=== PATIENT | female | born 1985 | race Asian ===

== ENCOUNTER 2017-12-05 16:51 | Emergency (ER) | payer MEDICAID ==
[~2017-12-05] VITALS: Ht 152.4 cm; Wt 65.0 kg
[~2017-12-05 16:51] MED LIST: VALA100027 PO
[2017-12-05] MEDS ORDERED: normal saline 1000ML IV soln IVB ONE (17:05)
[2017-12-05 17:21] LABS: BASOPHILS % (AUTO) 0.2 % (0-1); EOSINOPHILS # (AUTO) 0.1 X10'3 (0-0.9); EOSINOPHILS % (AUTO) 0.4 % (0-6); HEMATOCRIT 38.2 % (35.0-45.0); HEMOGLOBIN 12.7 g/dl (12.0-16.0); LYMPHOCYTES # (AUTO) 1.3 X10'3 (1.1-4.8); LYMPHOCYTES % (AUTO) 10.2 % (21-51); MEAN CORPUSCULAR HEMOGLOBIN 22.4 PG (27.0-31.0); MEAN CORPUSCULAR HGB CONC 33.2 % (33.0-36.5); MEAN CORPUSCULAR VOLUME 67.3 FL (78-98); MEAN PLATELET VOLUME 9.8 FL (7.4-10.4); MONOCYTES # (AUTO) 0.4 X10'3 (0-0.9); NEUTROPHILS # (AUTO) 11.3 X10'3 (1.8-7.7); NEUTROPHILS % (AUTO) 86.2 % (42-75); PLATELET COUNT 235 X10'3 (140-440); RED BLOOD COUNT 5.67 X10'6 (4.20-5.60); RED CELL DISTRIBUTION WIDTH 14.1 % (11.5-14.5); WHITE BLOOD COUNT 13.1 X10'3 (4.5-11.0)
[2017-12-05 17:35] LABS: ALANINE AMINOTRANSFERASE 28 U/L (12-78); ALBUMIN 3.6 G/DL (3.4-5.0); ALBUMIN/GLOBULIN RATIO 0.8 (1.1-1.5); ALKALINE PHOSPHATASE 102 IU/L (46-116); ANION GAP 13 (8-16); ASPARTATE AMINO TRANSFERASE 16 U/L (10-37); BILIRUBIN,TOTAL 0.8 MG/DL (0.1-1.0); BLOOD UREA NITROGEN 9 MG/DL (7-18); CALCIUM 9.2 MG/DL (8.5-10.1); CHLORIDE 103 MMOL/L (99-107); GLUCOSE 121 MG/DL (70-104); POTASSIUM 3.7 MMOL/L (3.5-5.1); SODIUM 140 MMOL/L (135-145); TOTAL CARBON DIOXIDE 24.4 MMOL/L (24-32); TOTAL PROTEIN 8.4 G/DL (6.4-8.2); eGFR > 90 ML/MIN
[2017-12-05 18:20] LABS: CLARITY,URINE CLEAR (Clear); COLOR,URINE YELLOW (Yellow); GLUCOSE, URINE NEGATIVE (Neg); KETONES,URINE 40 mg/dl (Neg); LEUKOCYTE ESTERASE ,URINE NEGATIVE (Neg); NITRITES, URINE NEGATIVE (Neg); OCCULT BLOOD,URINE MODERATE (Neg); PROTEIN,URINE NEGATIVE (Neg); URINE HCG NEGATIVE (NEG)
[2017-12-05 18:23] LABS: UA COLLECTION TYPE CLN CATCH MIDSTREAM
[2017-12-05 18:31] LABS: BACTERIA,URINE NONE SEEN /HPF (Neg); MUCUS STRANDS MODERATE /LPF (Neg); SQUAMOUS EPITHELIAL CELL,UR FEW /LPF (FEW); WBC,URINE 0-4 /HPF (0-4)
[2017-12-05] MEDS ORDERED: PENI500T2 PO (19:01)
[2017-12-05] MEDS ORDERED: IBUP-1984 PO (19:01)
[2017-12-05 19:50] VITALS: BP 124/63
== END 2017-12-05 19:53 | disposition home or self-care (01) ==
LOC: ER 16:51
DX: J02.0 Streptococcal pharyngitis (principal)
CPT/HCPCS: 36415; 80053; 81001; 81025; 85025; 87502; 87503; 87880; 96360; 99284; J7030

== ENCOUNTER 2018-11-08 12:09 | Emergency (ER) | payer MEDICAID ==
[~2018-11-08] VITALS: Ht 152.4 cm; Wt 66.5 kg
[2018-11-08 13:40] LABS: CLARITY,URINE CLEAR (Clear); COLOR,URINE YELLOW (Yellow); GLUCOSE, URINE NEGATIVE (Neg); KETONES,URINE NEGATIVE (Neg); LEUKOCYTE ESTERASE ,URINE NEGATIVE (Neg); NITRITES, URINE NEGATIVE (Neg); OCCULT BLOOD,URINE SMALL (Neg); PH,URINE 6.5 (4.8-8.0); PROTEIN,URINE NEGATIVE (Neg)
[2018-11-08 13:41] LABS: URINE HCG NEGATIVE (NEG)
[2018-11-08 13:49] LABS: BACTERIA,URINE NONE SEEN /HPF (Neg); MUCUS STRANDS FEW /LPF (Neg); SQUAMOUS EPITHELIAL CELL,UR MODERATE /LPF (FEW); UA COLLECTION TYPE CLN CATCH MIDSTREAM; WBC,URINE 0-4 /HPF (0-4)
[2018-11-08 13:49] LABS: BASOPHILS % (AUTO) 0.1 % (0-1); EOSINOPHILS # (AUTO) 0.1 X10'3 (0-0.9); EOSINOPHILS % (AUTO) 0.6 % (0-6); HEMATOCRIT 40.6 % (35.0-45.0); HEMOGLOBIN 12.6 g/dl (12.0-16.0); LYMPHOCYTES # (AUTO) 1.8 X10'3 (1.1-4.8); MEAN CORPUSCULAR HEMOGLOBIN 21.1 PG (27.0-31.0); MEAN CORPUSCULAR HGB CONC 30.9 % (33.0-36.5); MEAN CORPUSCULAR VOLUME 68.3 FL (78-98); MEAN PLATELET VOLUME 10.5 FL (7.4-10.4); MONOCYTES # (AUTO) 0.8 X10'3 (0-0.9); MONOCYTES % (AUTO) 6.9 % (2-12); NEUTROPHILS # (AUTO) 8.4 X10'3 (1.8-7.7); NEUTROPHILS % (AUTO) 76.4 % (42-75); PLATELET COUNT 231 X10'3 (140-440); RED BLOOD COUNT 5.94 X10'6 (4.20-5.60); RED CELL DISTRIBUTION WIDTH 13.1 % (11.5-14.5); WHITE BLOOD COUNT 11.1 X10'3 (4.5-11.0)
[2018-11-08 14:10] LABS: PROTHROMBIN TIME 10.2 SECONDS (9.0-12.0)
[2018-11-08 14:12] LABS: ALANINE AMINOTRANSFERASE 23 U/L (12-78); ALBUMIN 3.3 G/DL (3.4-5.0); ALBUMIN/GLOBULIN RATIO 0.7 (1.1-1.5); ALKALINE PHOSPHATASE 104 IU/L (46-116); ANION GAP 11 (8-16); ASPARTATE AMINO TRANSFERASE 22 U/L (10-37); BLOOD UREA NITROGEN 10 MG/DL (7-18); BUN/CREATININE RATIO 25.6 (6.6-38.0); CALCIUM 8.9 MG/DL (8.5-10.1); CHLORIDE 101 MMOL/L (99-107); CREATININE 0.39 MG/DL (0.40-0.90); GLUCOSE 89 MG/DL (70-104); LIPASE 109 U/L (73-393); POTASSIUM 3.8 MMOL/L (3.5-5.1); SODIUM 135 MMOL/L (135-145); TOTAL CARBON DIOXIDE 22.6 MMOL/L (24-32); TOTAL PROTEIN 8.2 G/DL (6.4-8.2); eGFR > 90 ML/MIN
[2018-11-08] MEDS ORDERED: normal saline 1000ML IV soln IV ONE (14:25)
[2018-11-08] MEDS ORDERED: ondansetron/PF 4mg/2ml inj IV ONE (14:25)
[2018-11-08] MEDS ORDERED: ONDA4TAB6 PO (16:19)
[2018-11-08 16:44] VITALS: BP 117/73
== END 2018-11-08 16:47 | disposition home or self-care (01) ==
LOC: ER 12:10
DX: B34.9 Viral infection, unspecified (principal); E86.0 Dehydration; R00.0 Tachycardia, unspecified; Z79.899 Other long term (current) drug therapy
CPT/HCPCS: 36415; 71045; 80053; 81001; 81025; 83605; 83690; 85025; 85610; 87040; 87502; 87503; 96361; 96374; 99284; J2405; J7030

== ENCOUNTER 2018-12-03 14:30 | Emergency (ER) | payer MEDICAID ==
[~2018-12-03] VITALS: Ht 152.4 cm; Wt 65.0 kg
[~2018-12-03 14:30] MED LIST changes: +ONDA4TAB6 PO
[2018-12-03 14:34] VITALS: BP 143/87
== END 2018-12-03 15:21 | disposition home or self-care (01) ==
LOC: ER 14:31
DX: S06.0X0A Concussion without loss of consciousness, initial encounter (principal); S00.31XA Abrasion of nose, initial encounter; Z79.899 Other long term (current) drug therapy; Y04.2XXA Assault by strike against or bumped into by another person, initial encounter; Y93.89 Activity, other specified; Y92.89 Other specified places as the place of occurrence of the external cause; Y99.8 Other external cause status
CPT/HCPCS: 99281

== ENCOUNTER 2020-07-16 11:43 | Emergency (ER) | payer SELFPAY ==
[~2020-07-16] VITALS: Ht 152.4 cm; Wt 58.2 kg
[~2020-07-16 11:43] MED LIST changes: -VALA100027 PO; +VALA100031 PO
[2020-07-16 11:52] VITALS: BP 151/93
[2020-07-16] MEDS ORDERED: acetaminophen 325mg tablet PO ONE (14:45)
[2020-07-16] MEDS ORDERED: HYDR-4383 PO (15:34)
[2020-07-16] MEDS ORDERED: CEPH250T PO (15:39)
== END 2020-07-16 16:13 | disposition home or self-care (01) ==
LOC: ER 11:44
DX: S00.81XA Abrasion of other part of head, initial encounter (principal); R11.10 Vomiting, unspecified; R51 Headache; Z72.89 Other problems related to lifestyle; Z79.2 Long term (current) use of antibiotics; Z79.899 Other long term (current) drug therapy; X58.XXXA Exposure to other specified factors, initial encounter; Y93.89 Activity, other specified; Y92.89 Other specified places as the place of occurrence of the external cause; Y99.8 Other external cause status; Y09 Assault by unspecified means
CPT/HCPCS: 70450; 70486; 72125; 99285

== ENCOUNTER 2025-06-20 16:14 | Inpatient (IN) | payer MEDICAID ==
[~2025-06-20] VITALS: Ht 152.4 cm; Wt 54.0 kg
[~2025-06-20 16:14] MED LIST changes: +HYDR-4383 PO
[2025-06-20] MEDS: normal saline 1000ML IV soln IVB ONE (17:09)
[2025-06-20 17:14] LABS: MEAN PLATELET VOLUME 9.0 FL (7.4-10.4); RED CELL DISTRIBUTION WIDTH 14.4 % (11.5-14.5)
[2025-06-20 17:25] LABS: CREATININE 0.52 MG/DL (0.40-0.90); TOTAL CARBON DIOXIDE 24.8 MMOL/L (24-32); eCRCL 103 ML/MIN; eGFR > 90 ML/MIN
[2025-06-20 17:54] LABS: LEUKOCYTE ESTERASE ,URINE NEGATIVE (Neg); NITRITES, URINE NEGATIVE (Neg); OCCULT BLOOD,URINE TRACE-INTACT (Neg)
[2025-06-20 17:58] LABS: UA COLLECTION TYPE VOIDED; URINE HCG NEGATIVE (NEG)
[2025-06-20 17:59] LABS: SQUAMOUS EPITHELIAL CELL,UR FEW /LPF (FEW)
[2025-06-20 18:00] LABS: MUCUS STRANDS FEW /LPF (Neg)
--- NOTE | 2025-06-20 18:38 | Physician Documentation ---
History of Present Illness ~ Chief Complaint: Abdominal Pain Stated Complaint: ABD PAIN AND NOT KEEPING ANYTHING DOWN Time Seen by MD: 18:24 OK to notify your PCP?: Yes [facility] Source: patient Mode of Arrival: POV Exam Limitations: no limitations HPI Chief Complaint: Abdominal pain Caveat: None Independent Historians: None History of Present Illness: Patient is a 40-year-old woman who started to feel ill this morning at approximately 11:00 a.m. with diffuse abdominal pain. Patient describes the pain as constant, severe, 10/10, waxes and wanes. She has had associated nausea and vomiting. Patient states that she started to have diarrhea multiple times throughout the night but then today is only had diarrhea once. Patient denies any fever. Patient complains of feeling bloated. Patient also complains of heartburn and complains of lower central substernal chest pain. Patient also complains of shortness a breath and shortness a breath with exertion. Review of systems: All systems were reviewed and are negative except for what is indicated in the history of present illness. Past Medical History: None Past Surgical History: Cholecystectomy, fibroidectomy Social History: No tobacco use, occasional alcohol use, no drug use Medications: Reviewed as documented Nursing Notes Allergies: Reviewed as documented in Nursing Notes Medication Reconciliation Allergies: Coded Allergies: No Known Allergies (Unverified , 03/07/13) Scheduled Hydrocodone/Acetaminophen ([place] 5-325 Tablet), 1 TAB PO Q12H PRN Ondansetron Hcl (Zofran), 1 TAB PO Q6H Valacyclovir HCl (Valacyclovir), 1 TABLET PO TID Past Medical History Past Medical History: No Pertinent History Past Surgical History: no surgical history Alcohol Use: Occasionally Drug Use: none Lives with: S/O Lives In: Home Review of Systems All Other Systems at this time: Reviewed and Negative ROS Patient denies any other acute symptoms other than above. All other systems are negative Physical Exam Vital Signs: RN Vital Signs have been reviewed: Yes, Temperature: 97.7, Source: Oral, Heart Rate: 119, Respiratory Rate: 16, BP: 186/72, Pulse Oximetry: 97, Weight: 54.000 Pulse Oximetry Reflects: adequate oxygenation Physical Exam General Appearance: MODERATE DISTRESS HEENT: Normal OP, moist oral mucosa, PERRL, EOMI Neck: supple, normal ROM, trachea midline Pulmonary: No respiratory distress, CTA, BS equal Cardiac: TACHYCARDIC, REGULAR RHYTHM, no murmur, rub or gallop, GI: DISTENDED, TYMPANITIC TO PERCUSSION, HYPERACTIVE BOWEL SOUNDS, SOFT, DIFFUSE TENDERNESS, NO REBOUND, NO GUARDING Extremities: normal ROM, no swelling, non-tender, CALVES ARE SOFT AND NONTENDER Skin: intact, dry, warm, no rashes Neuro: AAOx3, speech is clear, no focal motor weakness Psych: normal affect, good eye contact, no apparent hallucination, normal speech Progress Results/Orders Results/Orders Orders - ABDIRIZKA HELMS MD Culture Blood (06/20/25 18:30) Ct Abdomen Pelvis (06/20/25 18:30) Chest,Single View (06/20/25 18:44) Completed Orders - ABDIRIZAK HELMS MD Normal Saline 1000ml (0.9% Sodium Chlori (06/20/25 18:30) Procalcitonin (06/20/25 18:30) Ceftriaxone 2gm/D5w 50ml Bag (Rocephin 2 (06/20/25 18:30) Hs Troponin I W Calculations (06/20/25 18:30) Hs Troponin I W Calculations (06/20/25 21:30) Lacticsepsis (06/20/25 18:30) D-Dimer (06/20/25 18:30) Chest,Single View (06/20/25 18:44) Electrocardiogram (06/20/25 18:44) Ondansetron Inj. (Zofran 4mg/2ml Vial) (06/20/25 19:00) Morphine 4mg/Ml Inj. (Morphine Inj.) (06/20/25 19:00) Hs Troponin I W Calculations (06/20/25 20:30) Diazepam Inj (Valium Inj) (06/20/25 20:40) Lactic,2hr (06/20/25 20:53) Medications Received in ER Medications (Trade) Dose Ordered Sig/Gretta Route PRN Reason Start Time Stop Time Status Last Admin Dose Admin (0.9% sodium chloride (NS) 1000ml IV soln) 1,000 ml ONCE ONCE IVB 06/20/25 17:10 06/20/25 17:11 DC 06/20/25 17:09 1,000 ML Sodium Chloride 2,000 ml @ 666.666 mls/hr ONCE ONCE IV 06/20/25 18:30 06/20/25 21:29 DC 06/20/25 18:46 666.666 MLS/HR Ceftriaxone Sodium/Dextrose 50 ml @ 100 mls/hr ONCE ONCE IV 06/20/25 18:30 06/20/25 18:59 DC 06/20/25 19:07 100 MLS/HR (Zofran 4mg/2ml vial) 4 mg ONCE ONCE IV 06/20/25 19:00 06/20/25 19:01 DC 06/20/25 19:02 4 MG (morphine inj.) 4 mg Q20M PRN IV moderate to severe pain 4-10 06/20/25 19:00 06/20/25 20:17 DC 06/20/25 20:15 4 MG (Valium inj) 5 mg ONCE ONCE IV 06/20/25 20:40 06/20/25 20:41 DC 06/20/25 20:48 5 MG Vital Signs 06/20/25 06/20/25 06/20/25 06/20/25 16:36 16:49 18:52 18:52 Temp 97.7 Pulse 119 127 Resp 28 16 20 22 B/P (MAP) 186/72 159/97 (117) Pulse Ox 97 99 06/20/25 06/20/25 06/20/25 06/20/25 19:04 20:00 20:15 20:50 Pulse 122 123 Resp 18 22 25 29 B/P (MAP) 130/99 (109) 141/82 (101) Pulse Ox 98 97 06/20/25 21:44 Pulse 123 Resp 33 B/P (MAP) 148/88 (108) Pulse Ox 98 Laboratory Tests Test 06/20/25 17:00 06/20/25 17:40 06/20/25 19:23 06/20/25 21:16 White Blood Count 13.4 H Red Blood Count 5.49 Hemoglobin 13.1 Hematocrit 39.8 Mean Corpuscular Volume 72.5 L Mean Corpuscular Hemoglobin 23.8 L Mean Corpuscular Hemoglobin Concent 32.8 L Red Cell Distribution Width 14.4 Platelet Count 184 Mean Platelet Volume 9.0 Neutrophils (%) (Auto) 91.2 H Lymphocytes (%) (Auto) 5.1 L Monocytes (%) (Auto) 3.4 Eosinophils (%) (Auto) 0 Basophils (%) (Auto) 0.3 Neutrophils # (Auto) 12.2 H Lymphocytes # (Auto) 0.7 L Monocytes # (Auto) 0.5 Eosinophils # (Auto) 0.0 Basophils # (Auto) 0.0 CBC Comment Sodium Level 138 Potassium Level 3.7 Chloride Level 103 Carbon Dioxide Level 24.8 Anion Gap 10 Blood Urea Nitrogen 7 Creatinine 0.52 Estimated GFR/1.73 m2 > 90 BUN/Creatinine Ratio 13.5 Glucose Level 136 H Calcium Level 8.6 Total Bilirubin 1.5 H Aspartate Amino Transf (AST/SGOT) 55 H Alanine Aminotransferase (ALT/SGPT) 22 Alkaline Phosphatase 163 H Troponin I High Sensitivity 44 36 Total Protein 7.8 Albumin 3.0 L Globulin 4.8 H Albumin/Globulin Ratio 0.6 L Lipase > 375 H Procalcitonin < 0.05 Chemistry Comments Ethyl Alcohol Level < 10 Urine Specimen Description Voided Urine Color Yellow Urine Clarity Clear Urine pH 6.0 Urine Specific [place] >=1.030 Urine Protein 30 H Urine Glucose (UA) Negative Urine Ketones Trace H Urine Occult Blood Trace-intact Urine Nitrite Negative Urine Bilirubin Small Urine Urobilinogen 0.2 Urine Leukocyte Esterase Negative Urine RBC 0-2 Urine WBC 0-4 Urine Squamous Epithelial Cells Few Urine Bacteria None seen Urine Mucus Few Urine Culture Indicated Not ind Volume Urine Centrifuged 8 ml Urine HCG, Qualitative Negative Urine Comment Low volume D-Dimer 1.10 H D-Dimer Comment Lactic Acid Level 2.1 H 1.9 Troponin I High Sens Percent Delta 18 Troponin I Hi Sens Absolute Change -8 Microbiology Date/Time Source Procedure Growth Status 06/20/25 19:56 Blood Hand Left Blood Culture - Preliminary NEGATIVE (LESS THAN 24 HOURS) Resulted Medical Decision Making Findings Differential diagnosis includes but is not limited to: Sepsis, pulmonary embolus, acute coronary syndrome, small-bowel obstruction, acute pancreatitis, cholangitis, retained gallstone, colitis, dehydration, electrolyte abnormalities, acute kidney injury, acute appendicitis EKG independent interpretation: Performed at 649 p.m.. Sinus tachycardia, heart rate 122, right bundle-branch block, normal axis Chest x-ray, single view, indication: Chest pain, abdominal pain Independent interpretation: Lungs are clear, normal mediastinum, normal cardiac silhouette, nonspecific bowel gas pattern, no free air. No acute cardiopulmonary process CT abdomen and pelvis without contrast, indication: Abdominal pain pancreatitis Impression: Pending Laboratory data independent interpretation: CBC: Leukocytosis of 13.4 CMP: Total bilirubin elevated 1.5, AST elevated 55, ALT normal 22, alk-phos elevated 163 Lipase: >375 Lactic acid: 2.1 Troponin: 44 D-dimer: 1.10 Procalcitonin: Urinalysis: Unremarkable Urine : Negative Emergency department course/medical decision-making: Patient is a 40-year-old woman that comes in appearing acutely ill. Patient is tachycardic. Patient is suspected of having an intra-abdominal process and possible small bowel obstruction, sepsis. Patient's lipase is elevated consistent with a pancreatitis. Immediately after I evaluated the patient I added a battery of additional lab tests and imaging to evaluate for all of the above. Patient has received 1 L of normal saline. She will be given additional normal saline, at least 30 cc/kilogram to see if this improves her heart rate. Patient will be given morphine 4 mg IV for her pain and Zofran 4 mg IV for her nausea and vomiting. Patient will also be given Rocephin 1 g IV empirically. 6:47 p.m.: We [facility] not have CT [facility]. Patient is likely going to require transfer for definitive diagnoses. Once the additional lab work and chest x-ray and EKGs performed transfer process we will begin. 8:00 p.m.: Patient has received 2 L of normal saline. Patient heart rate has not changed. The patient still has 7/10 abdominal pain despite morphine 4 mg IV. Patient will be given additional morphine. Suspect acute pancreatitis. Patient will be kept NPO. Patient drinks daily but has not had any alcohol today. Patient's last alcohol was Sunday evening. Patient drank heavily Th evening. Patient does not appear to be an alcohol withdrawal. She does not have any tremors. Although the patient's tachycardia certainly raises that suspicion. Patient is afebrile. Patient is normotensive. Patient is starting to show other signs of withdrawal. Patient isn't having any altered mental status. Patient is having tremors. Patient is given Valium 5 mg IV. Patient will be started on the CIWA protocol. Results and treatment plan reviewed with the patient. Consultation/communications: 10:30 p.m.: Case discussed with the resident hospitalist for admission. He will evaluate. Departure Time of Disposition: 22:35 Disposition: 09 ADMITTED INPATIENT Admitted to Inpatient Unit: to hospitalist Admission Level of Care: Med/Surg with Tele Impression: Primary Impression: Acute pancreatitis Qualified Codes: K85.20 - Alcohol induced acute pancreatitis without necrosis or infection Additional Impression: Alcohol withdrawal Qualified Codes: F10.939 - Alcohol use, unspecified with withdrawal, unspecified Referrals: NO PRIMARY CARE PROVIDER (PCP) Education Educated: Patient Educated regarding: diagnosis, treatment Signature Scribe Signature: No scribe Attestation: No scribe ABDIRIZAK HELMS MD Jun 20, 2025 18:38
[2025-06-20] MEDS: normal saline 1000ml 2,000 ML IV ONE (18:46)
--- NOTE | 2025-06-20 18:51 | ELECTROCARDIOGRAPH REPORT ---
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
[2025-06-20] MEDS: ondansetron/PF 4mg/2ml inj IV ONE (19:02)
[2025-06-20] MEDS: morphine 4 MG/ML inj SYRINge IV PRN (19:04)
[2025-06-20] MEDS: CefTRIAXone 2gm/D5W 50ml BAG 50 ML IV ONE (19:07)
--- NOTE | 2025-06-20 19:44 | RADIOLOGY REPORT ---
EXAM: DI CHEST,SINGLE VIEW CLINICAL HISTORY: CP TECHNIQUE: Single AP view of the chest WID: COMPARISON: None FINDINGS: Lines and tubes: None Chest: The heart size and pulmonary vasculature is within normal limits. No pleural effusion, pneumothorax, or consolidation. The osseous structures are grossly intact. Bony excrescence along the inferior aspect of the mid to d istal left clavicle which could be an osteochondroma. Cholecystectomy clips are seen. IMPRESSION: No acute cardiopulmonary abnormality.
[2025-06-20] MEDS: diazepam inj 5 MG/ML inj. IV ONE (20:48)
[2025-06-20] MEDS ORDERED: magnesium sulf-water 4G/100mL 100 ML IV PRN (22:30)
[2025-06-20] MEDS ORDERED: potassium Cl 20 mEq SR tablet PO PRN ×2 (22:30)
[2025-06-20] MEDS ORDERED: magnesium hydroxide 30ml (MOM) UD suspension PO PRN (22:30)
[2025-06-20] MEDS: normal saline 1000ml 1,000 ML IV SCH (22:30)
[2025-06-20] MEDS ORDERED: magnesium Cl slow-release 64mg tablet PO PRN (22:30)
[2025-06-20] MEDS ORDERED: ondansetron/PF 4mg/2ml inj IV PRN (22:30)
[2025-06-20] MEDS ORDERED: mag hydrox/Alum hydrox/simeth 30ml oral suspension PO PRN (22:30)
[2025-06-20 22:53] LABS: ETHANOL < 10 MG/DL (<10)
--- NOTE | 2025-06-20 23:33 | HISTORY AND PHYSICAL-Residence ---
History & Physical Providers to CC Resident Creating Document: GREGORY CHONG CC: MARGARITA COLEY MD ~ History of Present Illness Primary Medical Doctor: [facility] Reason for Admit\Complaint: Abdominal pain History of Present Illness Patient is a 40-year-old female with history of alcohol use disorder who came to the ED due to severe abdominal pain. Patient reports that this morning she presented with sudden onset abdominal pain which started on left flank/back and then migrated to her epigastrium, 10/10 in intensity, worsened by walking, attenuated by morphine which she received in ED. Pain was accompanied by accompanied by nausea, vomiting, lack of appetite, bloating and chills. She denies fevers, diarrhea, hematemesis or melena. Pain is currently at 9/10. Patient reports that she normally drinks about 3 alcoholic lemonade beverage every night (8% alcohol), however, she reports that this past week due to some relatives being in town she has been drinking much more including hard liquor. Her last drink was Sunday night. Allergies: Coded Allergies: No Known Allergies (Unverified , 03/07/13) Home Medications Home Medications Active [place] 5-325 Tablet (Hydrocodone/Acetaminophen) 1 Each Tablet 1 Tab PO Q12H PRN 5 Days Zofran (Ondansetron Hcl) 4 Mg Tablet 1 Tab PO Q6H 5 Days Valacyclovir (Valacyclovir HCl) 1,000 Mg Tablet 1 Tablet PO TID Past Medical History Past Medical History Alcohol use disorder Past Surgical History Surgical History Comment Cholecystectomy, 2010 Fibroid resection, 2013 x2, 2021 and 2013 Family History Family History: FH: type 2 diabetes FATHER Past Social History Smoking: Non-Smoker Alcohol Use: Heavy Drug Use: None Lives with: Family Lives In: Home Occupation: unemployed ROS Constitutional: Reports: see HPI Eyes: Denies: no symptoms reported, pain, discharge, blurred vision, double vision, itching, photophobia, redness, tearing, other ENT: Denies: no symptoms reported, ear pain, ear bleeding, ear discharge, hearing loss, ear ringing, nose pain, nose bleeding, nose congestion, nose discharge, throat pain, throat swelling, voice change, mouth pain, mouth bleeding, mouth swelling, other Respiratory: Denies: no symptoms reported, cough, orthopnea, shortness of breath, SOB with exertion, SOB at rest, stridor, wheezing, hemoptysis, pain with breathing, other Cardiovascular: Denies: no symptoms reported, chest pain, left arm pain, diaphoresis, lightheadedness, syncope, edema, palpitations, irregular heart rate, other Gastrointestinal: Reports: see HPI Genitourinary: Denies: no symptoms reported, burning, discharge, dysuria, frequency, flank pain, hematuria, incontinence, pain, decreased urine output, urgency, other Female Genitalia: Denies: no reported symptoms, vaginal discharge, vaginal pain, pelvic pain, abnormal bleeding, dyspareunia, , other Neurological: Denies: no symptoms reported, speech problem, headache, dizziness, fainting, tingling, left sided numbness, right sided numbness, left sided weakness, right sided weakness, problems walking, unable to move lower ext, unable to move upper ext, petit mal seizures, tonic-clonic seizures, cognitive dysfunction, other Musculoskeletal: Denies: no symptoms reported, pain, swelling, back pain, gout, joint pain, joint swelling, muscle pain, muscle swelling, muscle stiffness, neck pain, other Integumentary: Denies: no symptoms reported, rash, itching, lesions, lumps, bruise(s), wound(s), laceration(s), dryness, change in color, other Allergic/Immunologic: Denies: no symptoms reported, hives, itching, frequent infections, difficulty healing, other Hematologic/Lymphatic: Denies: no symptoms reported, anemia, blood clots, easy bleeding, easy bruising, swollen glands, other Endocrine: Denies: no symptoms reported, excessive sweating, flushing, intolerance to cold, intolerance to heat, increased hunger, increased thrist, increased urine, unexplained weight gain, unexplained weight loss, other Psychiatric: Denies: no symptoms reported, depression, anxiety, sleeplessness, hopeless, suicidal, hallucinations, other Exam Vitals: Vital Signs Date Time Temp Pulse Resp B/P (MAP) Pulse Ox O2 Delivery O2 Flow Rate FiO2 06/20/25 21:44 123 33 148/88 (108) 98 06/20/25 16:36 97.7 General: General: awake, alert oriented to place, time, and person HEENT: Marked pallor present, no icterus, dry mucous membranes Neck: No masses and tenderness Resp: Unlabored. Lungs clear to auscultation bilaterally. Chest: Normal expansion Cardiovascular: Tachycardic, rhythm, normal S1 and S2 without murmur, rub or gallop Abdomen: Soft significantly tender to deep palpation, worse in epigastrium, no organomegaly, no guarding and rigidity, bowel sounds present Neuro: No focal weakness in the upper and lower limb muscles, power of the muscles 5/5 bilateral upper and lower extremities, normal reflexes bilaterally. Cranial nerves intact Extremities: No cyanosis,clubbing or edema Skin: Warm and Dry. No lesions Psych: Normal affect Diagnostic Data Last Recorded Lab Results: 06/20/25 1700 06/20/25 2240 Diagnostic Data: Laboratory Tests Test 06/20/25 19:23 D-Dimer 1.10 MG/L FEU (0-0.50) H D-Dimer Comment Advance Care Planning Advanced Care plannin - 30 Minutes Additional Plan Patient is a 40-year-old female with history of alcohol use disorder who came to the ED due to severe abdominal pain. Admitted for management of acute alcoholic pancreatitis. Abdominal pain Acute alcoholic pancreatitis Alcohol use disorder Patient is tachycardic but hemodynamically stable WBC is 13.4, Lactic acid: 2.1, 1.9, Lipase: >375, bilirubin: 1.5 Urinalysis is negative for infection Received 2 L of IV NS in ED. Will give another 2 L bolus and continue maintenance at 150 cc/hour Continue morphine p.r.n. for pain management Keep NPO Alcohol withdrawal protocol in place Continue tele monitoring Patient declined substance abuse navigator consult CT abdomen/pelvis in AM. Currently not available Bifascicular block Incidental finding on EKG No prior cardiac history Continue tele monitoring Code Status: Full code DVT prophylaxis: Lovenox Analgesia/sedation: Morphine GI prophylaxis: Protonix Nutrition: NPO Prognosis: Guarded Disposition: Admit to PCU with tele monitoring. Continue medical management Gregory Haas MD Internal Medicine Resident PGY-2 Date of Service: Jun 20, 2025 Billing Provider: MARGARITA COLEY MD, LEONARDO LUIS Jun 20, 2025 23:33
[2025-06-20] MEDS: normal saline 1000ml 1,000 ML IV STA ×2 (23:45)
[2025-06-20] MEDS ORDERED: NO HOME MEDS (23:48)
[2025-06-21] VITALS (9 sets, daily range): BP systolic 142–173; BP diastolic 68–97; PULSE 107–151; RESP 18–36; TEMP 97–98.9; O2SAT 96–100
[2025-06-21] MEDS: magnesium sulf-water 2g/50mL 50 ML IV PRN (01:22)
[2025-06-21] MEDS: haloperidol lactate 5mg/ml inj IM PRN (05:20)
[2025-06-21] MEDS: metoprolol tartrate 1mg/ml inj IV ONE (05:20)
[2025-06-21 06:31] LABS: MEAN PLATELET VOLUME 9.7 FL (7.4-10.4); RED CELL DISTRIBUTION WIDTH 14.6 % (11.5-14.5)
[2025-06-21 06:42] LABS: INR 1.3 INR
[2025-06-21 07:08] LABS: CREATININE 0.44 MG/DL (0.40-0.90); PHOSPHORUS 2.8 MG/DL (2.3-4.5); TOTAL CARBON DIOXIDE 22.3 MMOL/L (24-32); eCRCL 122 ML/MIN; eGFR > 90 ML/MIN
[2025-06-21] MEDS ORDERED: folic acid 1mg/0.2ml inj IV SCH (08:00)
[2025-06-21] MEDS ORDERED: thiamine 100mg/ml 2ml inj. IV SCH (08:00)
[2025-06-21] MEDS: docusate sod 100mg capsule PO SCH (08:00)
[2025-06-21] MEDS ORDERED: multivitamins, therapeutics tablet PO SCH (08:00)
[2025-06-21] MEDS ORDERED: haloperidol lactate 5mg/ml inj IM PRN (08:10)
[2025-06-21] MEDS: haloperidol lactate 5mg/ml inj IM ONE (08:27)
[2025-06-21] MEDS: folic acid 1mg/0.2ml inj IV SCH (08:37)
[2025-06-21] MEDS: K and/or MAG REPLACEMENT MC SCH (08:47)
[2025-06-21] MEDS: metoprolol tartrate 1mg/ml inj IV SCH (11:20)
[2025-06-21] MEDS: Potassium Cl inj 40 MEQ in sodium chloride 0.45% 500ml 500 ML IV ONE (11:20)
[2025-06-21] MEDS: ringers solution, lacted 1,000 ML IV SCH (11:25)
[2025-06-21] MEDS: ringers solution, lacted 1,000 ML IV ONE (12:13)
[2025-06-21] MEDS: magnesium sulf-water 2g/50mL 50 ML IV ONE (12:49)
[2025-06-21] MEDS: thiamine 100mg/ml 2ml inj. IV SCH (13:00)
--- NOTE | 2025-06-21 14:36 | PROGRESS NOTE- Residence ---
Progress Note - Resident Providers to CC Resident Creating Document: GUILLE BUSTOS RES ~ Antibiotic Timeout Antibiotic Ordered?: No Subjective Patient was seen at the bed side today. Was drowsy,unable to wake up. Objective Vital Signs Date Time Temp Pulse Resp B/P (MAP) Pulse Ox O2 Delivery O2 Flow Rate FiO2 06/21/25 12:25 117 06/21/25 07:00 98.9 157/97 (117) 98 Room Air 06/21/25 02:50 15 06/21/25 00:43 0.0 21 Result Diagram: 06/21/2561406/21/25614 General: Not awake, drowsy, sleeping HEENT: Marked pallor present, no icterus, dry mucous membranes Neck: No masses and tenderness Resp: Unlabored. Lungs clear to auscultation bilaterally. Chest: Normal expansion Cardiovascular: Tachycardic, rhythm, normal S1 and S2 without murmur, rub or gallop Abdomen: Soft significantly tender to deep palpation, worse in epigastrium, no organomegaly, no guarding and rigidity, bowel sounds present Neuro: No focal weakness in the upper and lower limb muscles, power of the muscles 5/5 bilateral upper and lower extremities, normal reflexes bilaterally. Cranial nerves intact Extremities: No cyanosis,clubbing or edema Skin: Warm and Dry. No lesions Psych: Normal affect Coagulation Studies Laboratory Tests Test 06/20/25 19:23 06/21/25 06:15 D-Dimer 1.10 MG/L FEU (0-0.50) H D-Dimer Comment Prothrombin Time 12.8 SECONDS (9.0-12.0) H INR International Normalized Ratio 1.3 INR Coagulation Comments Plan Plan Abdominal pain Acute alcoholic pancreatitis Alcohol use disorder Patient is tachycardic but hemodynamically stable WBC is 13.4, Lactic acid: 2.1, 1.9, Lipase: >375, bilirubin: 1.5 Urinalysis is negative for infection Received 2 L of IV NS in ED. Will give another 2 L bolus and continue maintenance at 150 cc/hour Continue morphine p.r.n. for pain management Keep NPO Alcohol withdrawal protocol in place Continue tele monitoring Patient declined substance abuse navigator consult CT abdomen/pelvis Bifascicular block Incidental finding on EKG No prior cardiac history Continue tele monitoring SUPRAVENTRICULAR TACHYCARDIA- Due to Haldol and Ativan-brief episodes of SVT Heart rate-160 Given metoprolol 5 mg IV two doses. Heart [id number] Code Status: Full code DVT prophylaxis: Lovenox Analgesia/sedation: Morphine GI prophylaxis: Protonix Nutrition: NPO Prognosis: Guarded Disposition: Admit to PCU with tele monitoring. Continue medical management Date of Service: Jun 21, 2025 Billing Provider: MATTIE ARREDONDO MD, PREETHI, RES Jun 21, 2025 14:36
--- NOTE | 2025-06-21 15:04 | RADIOLOGY REPORT ---
Exam: CT CT ABDOMEN PELVIS History: Sepsis COMPARISON: None Technique: Multidetector spiral CT of the abdomen and pelvis was performed from lung bases to pubic s ymphysis. Intravenous contrast was administered during this examination. Portal venous imaging was o btained. Axial, coronal and sagittal multiplanar reformats were performed by the technologist on a [employer] workstation. Radiation Dose : 1. Abdomen/Pelvis: CTDIvol 11.3 mGy, DLP 630 mGy*cm. Findings: Lung Bases: Cardiomegaly. Small bilateral pleural effusions. Dependent atelectasis. Liver: The liver is normal in size. No focal lesions. Normal hepatic vascular enhancement. Gallbladder and Biliary Tree: Gallbladder is surgically absent. Spleen: Unremarkable Pancreas: The pancreas is normal in appearance without focal lesions or abnormal enhancement. Adrenal Glands: Unremarkable Kidneys: No hydronephrosis. Bladder: Distended. Bowel: The stomach is grossly normal in appearance. Small bowel and colon are normal in caliber and d istribution. The appendix is not visualized; however, no secondary findings of acute appendicitis woody ntified. Ascites: Absent Lymphadenopathy: No mesenteric, retroperitoneal or periportal lymphadenopathy. Abdominal Wall and Mesentery: Small volume perihepatic and abdominal ascites. Vasculature: The visualized abdominal aorta is normal in size and caliber. Abdominal and pelvic vess els demonstrate normal enhancement. Pelvic Organs: Unremarkable Musculoskeletal: No aggressive focal bony lesions, acute fractures or dislocation. IMPRESSION: Small volume perihepatic abdominal ascites. Bibasilar subsegmental atelectasis and small bilateral pleural effusions. Cardiomegaly. Distended urinary bladder.
[2025-06-21 16:18] LABS: URINE AMPHETAMINE SCREEN NEGATIVE (Neg); URINE BARBITUATE SCREEN NEGATIVE (Neg); URINE BENZODIAZEPINES SCREEN NEGATIVE (Neg); URINE CANNABINOID SCREEN NEGATIVE (Neg); URINE COCAINE SCREEN NEGATIVE (Neg); URINE METHADONE SCREEN NEGATIVE (Neg); URINE OPIATE SCREEN POSITIVE (Neg); URINE PHENCYCLIDINE SCREEN NEGATIVE (Neg)
[2025-06-21] MEDS: dextrose 50%-water 50ml dispensing syringe IV PRN (19:29)
[2025-06-21] MEDS: enoxaparin 40mg/0.4ml syringe SQ SCH (19:53)
[2025-06-21] MEDS: metoprolol tartrate 1mg/ml inj IV PRN (20:00)
[2025-06-21] MEDS: acetaminophen 1,000mg/100ml IV 100 ML IV ONE (23:14)
[2025-06-22] VITALS (7 sets, daily range): BP systolic 144–172; BP diastolic 84–97; PULSE 113–128; RESP 20–30; TEMP 97.9–99.4; O2SAT 96–100
[2025-06-22 07:17] LABS: MEAN PLATELET VOLUME 9.4 FL (7.4-10.4); RED CELL DISTRIBUTION WIDTH 14.1 % (11.5-14.5)
[2025-06-22 07:32] LABS: CREATININE 0.50 MG/DL (0.40-0.90); TOTAL CARBON DIOXIDE 22.4 MMOL/L (24-32); eCRCL 107 ML/MIN; eGFR > 90 ML/MIN
--- NOTE | 2025-06-22 07:59 | ELECTROCARDIOGRAPH REPORT ---
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 CHEMA Gr Measurements Intervals [place] Rate: 155 P: 0 [place]: 79 QRS: 90 QRSD: 138 T: 4 QT: 328 QTc: 527 Interpretive Statements Narrow complex tachycardia, sinus versus atrial flutter with two-to-one block recommend clinical correlation RBBB and LPFB Probable posterior infarct, acute Electronically Signed On 06-22-2025 19:16:[address] CHEMA Gr Please click the below link to view image of tracing.
[2025-06-22] MEDS ORDERED: dextrose 50%-water 50ml dispensing syringe IV PRN (08:05)
[2025-06-22] MEDS ORDERED: glucagon, human recombinant 1mg kit SUBCUT PRN (08:05)
[2025-06-22] MEDS ORDERED: DEXTROSE 15 GM of carb/4 tabs (each vial/BOTTLE has 4 tablets) PO PRN (08:05)
[2025-06-22] MEDS: DEXTROSE 15 GM of carb/4 tabs (each vial/BOTTLE has 4 tablets) PO PRN (08:45)
[2025-06-22] MEDS: magnesium sulf-water 2g/50mL 50 ML IV ONE (08:59)
[2025-06-22] MEDS: potassium Cl 40MEQ/1/2NS 520ml 520 ML IV PRN (12:06)
[2025-06-22] MEDS: haloperidol lactate 5mg/ml inj IM PRN (16:05)
--- NOTE | 2025-06-22 18:12 | PROGRESS NOTE- Residence ---
Progress Note - Resident Providers to CC Resident Creating Document: KARYNA SMALLWOOD SHAWNYVROSE, RES ~ Antibiotic Timeout Antibiotic Ordered?: No Subjective The patient was seen and examined at bedside today. She is more alert and oriented today. Family was at bedside. Abdominal pain has gotten better. Objective Vital Signs Date Time Temp Pulse Resp B/P (MAP) Pulse Ox O2 Delivery O2 Flow Rate FiO2 06/22/25 14:17 130 06/22/25 02:00 98.9 22 144/87 (106) 96 Room Air 06/21/25 00:43 0.0 21 Result Diagram: 06/22/25 0658 06/22/25 06 Adult female, alert and somnolent, not in acute distress Head: Normocephalic with an atraumatic Eyes: Pupils- 3mm, reacting to light, conjunctiva- anicteric Nose and throat: No polyps, septum- normal, no mucosal ulcers Neck: Supple, no lymphadenopathy, no carotid bruit Respiratory: No use of accessory muscles of respiration, Bilateral normal vesicular breath sounds heard. No wheeze, rhochi or creps Cardiac: S1-S2 heard, rhythm regular, no gallop/murmur Abdomen: non distended, diffuse tenderness present, no organomegaly, bowel sounds - heard Extremities: no clubbing, no pedal edema, no deformities, peripheral pulses - 2+ Skin: warm and dry, no rash, no purpura Neuro: No focal deficit, gross cranial nerve exam - normal Coagulation Studies Laboratory Tests Test 06/20/25 19:23 06/21/25 06:15 D-Dimer 1.10 MG/L FEU (0-0.50) H D-Dimer Comment Prothrombin Time 12.8 SECONDS (9.0-12.0) H INR International Normalized Ratio 1.3 INR Coagulation Comments Plan Plan Abdominal pain Acute alcoholic pancreatitis Alcohol use disorder Patient is tachycardic but hemodynamically stable. Lipase is trending down. Patient is able to tolerate full liquid diet. Continue ringer lactate at 150 mL/hour. Continue Ativan and Haldol as per severe alcohol withdrawal protocol. Continue morphine p.r.n. for pain management Continue tele monitoring Substance abuse navigator consult Bifascicular block Incidental finding on EKG No prior cardiac history Continue tele monitoring Nonsustained supraventricular tachycardia Sinus tachycardia Secondary to alcohol withdrawal. Continue Ativan and Haldol as per severe alcohol withdrawal protocol. Code Status: Full code DVT prophylaxis: Lovenox Analgesia/sedation: Morphine GI prophylaxis: Protonix Nutrition: Full liquids Prognosis: Guarded Disposition: Continue management in PCU. Continue telemetry monitoring. Continue Ativan 2mg Q15M if required. Karyna Smallwood MD Internal Medicine Resident, PGY-2 Date of Service: Jun 22, 2025 Billing Provider: MATTIE ARREDONDO MD,KARYNA FLORES, RES Jun 22, 2025 18:12
[2025-06-23] VITALS (10 sets, daily range): BP systolic 130–154; BP diastolic 82–96; PULSE 116–146; RESP 16–43; TEMP 96.6–100.1; O2SAT 96–98
[2025-06-23] MEDS: dextrose 50%-water 50ml dispensing syringe IV PRN (01:04)
[2025-06-23 06:38] LABS: MEAN PLATELET VOLUME 8.7 FL (7.4-10.4); RED CELL DISTRIBUTION WIDTH 13.9 % (11.5-14.5)
[2025-06-23 07:15] LABS: CREATININE 0.52 MG/DL (0.40-0.90); TOTAL CARBON DIOXIDE 23.4 MMOL/L (24-32); eCRCL 103 ML/MIN; eGFR > 90 ML/MIN
[2025-06-23] MEDS: potassium Cl 20 mEq SR tablet PO STA (08:27)
[2025-06-23] MEDS: magnesium sulf-water 2g/50mL 50 ML IV ONE (08:27)
[2025-06-23] MEDS: metoprolol tartrate 1mg/ml inj IV ONE (14:20)
--- NOTE | 2025-06-23 17:06 | PROGRESS NOTE- Residence ---
Progress Note - Resident Providers to CC Resident Creating Document: GUILLE BUSTOS RES ~ Antibiotic Timeout Antibiotic Ordered?: No Subjective The patient was seen and examined at bedside today. She is sleepy, sometimes becoming restless. Abdominal pain has gotten better. Objective Vital Signs Date Time Temp Pulse Resp B/P (MAP) Pulse Ox O2 Delivery O2 Flow Rate FiO2 06/23/25 15:00 98.2 116 16 142/88 (106) 96 Room Air 06/21/25 00:43 0.0 21 Result Diagram: 06/23/25 0620 06/23/25 1451 General: Not awake, drowsy, sleeping HEENT: pallor present, no icterus, dry mucous membranes Neck: No masses and tenderness Resp: Unlabored. Lungs clear to auscultation bilaterally. Chest: Normal expansion Cardiovascular: Tachycardic, rhythm, normal S1 and S2 without murmur, rub or gallop Abdomen: Soft, tender to deep palpation, worse in epigastrium, no organomegaly, no guarding and rigidity, bowel sounds present Neuro: No focal weakness in the upper and lower limb muscles, power of the muscles 5/5 bilateral upper and lower extremities, normal reflexes bilaterally. Cranial nerves intact Extremities: No cyanosis,clubbing or edema Skin: Warm and Dry. No lesions Psych: Normal affect Coagulation Studies Laboratory Tests Test 06/20/25 19:23 06/21/25 06:15 D-Dimer 1.10 MG/L FEU (0-0.50) H D-Dimer Comment Prothrombin Time 12.8 SECONDS (9.0-12.0) H INR International Normalized Ratio 1.3 INR Coagulation Comments Plan Plan Abdominal pain Acute alcoholic pancreatitis Alcohol use disorder Chlordiazepoxide started 25 mg q.6 H p.o. Patient is tachycardic but hemodynamically stable. Lipase is trending down. Patient is able to tolerate full liquid diet. Continue ringer lactate at 150 mL/hour. Continue Ativan and Haldol as per severe alcohol withdrawal protocol. Continue morphine p.r.n. for pain management Continue tele monitoring Substance abuse navigator consult Hypokalemia- k-2.9 Ordered 40meq of potassium oral Level back to normal(3.9) Bifascicular block Incidental finding on EKG No prior cardiac history Continue tele monitoring Nonsustained supraventricular tachycardia Sinus tachycardia Secondary to alcohol withdrawal. Monitor electrolytes and keep potassium above four and magnesium above two. Continue Ativan and Haldol as per severe alcohol withdrawal protocol. Code Status: Full code DVT prophylaxis: Lovenox Analgesia/sedation: Morphine GI prophylaxis: Protonix Nutrition: Full liquids Prognosis: Guarded Disposition: Continue management in PCU. Continue telemetry monitoring. Continue Ativan 2mg Q15M if required. Started on chlordiazepoxide 25 mg q.6 H p.o. Anticipate discharge tomorrow. Priyank Weiss MD Internal Medicine Resident, PGY-1 Date of Service: Jun 23, 2025 Billing Provider: MATTIE ARREDONDO MD, PREETHI, RES Jun 23, 2025 17:06
[2025-06-24] VITALS (12 sets, daily range): BP systolic 142–161; BP diastolic 88–95; PULSE 100–123; RESP 15–40; TEMP 96.9–99.5; O2SAT 95–98
[2025-06-24 06:41] LABS: MEAN PLATELET VOLUME 9.5 FL (7.4-10.4); RED CELL DISTRIBUTION WIDTH 14.1 % (11.5-14.5)
[2025-06-24 07:11] LABS: CREATININE 0.40 MG/DL (0.40-0.90); TOTAL CARBON DIOXIDE 20.2 MMOL/L (24-32); eCRCL 134 ML/MIN; eGFR > 90 ML/MIN
[2025-06-24] MEDS ORDERED: albuterol 2.5 MG/3 ML nebule NEB PRN (14:10)
[2025-06-24] MEDS: CefTRIAXone/D5W-Rocephin 1gm 50 ML IV SCH (14:20)
--- NOTE | 2025-06-24 14:23 | PROGRESS NOTE- Residence ---
Progress Note - Resident Providers to CC Resident Creating Document: GUILLE BUSTOS RES ~ Antibiotic Timeout Antibiotic Ordered?: Yes Subjective The patient was seen and examined at bedside today. She is sleepy, sometimes becoming restless. Abdominal pain has gotten better. Wheezing present bilaterally . Objective Vital Signs Date Time Temp Pulse Resp B/P (MAP) Pulse Ox O2 Delivery O2 Flow Rate FiO2 06/24/25 11:00 99.5 116 35 143/93 (110) 97 Room Air 06/21/25 00:43 0.0 21 Result Diagram: 06/24/2548 06/24/2548 General: awake, drowsy,seemed a bit confused. HEENT: pallor present, no icterus, dry mucous membranes Neck: No masses and tenderness Resp: Unlabored. wheezing present bilaterally. Chest: Normal expansion Cardiovascular: Tachycardic, rhythm, normal S1 and S2 without murmur, rub or gallop Abdomen: Soft, tender to deep palpation, no organomegaly, no guarding and rigidity, bowel sounds present Neuro: No focal weakness in the upper and lower limb muscles, power of the muscles 5/5 bilateral upper and lower extremities, normal reflexes bilaterally. Cranial nerves intact Extremities: No cyanosis,clubbing or edema Skin: Warm and Dry. No lesions Psych: Normal affect Coagulation Studies Laboratory Tests Test 06/20/25 19:23 06/21/25 06:15 D-Dimer 1.10 MG/L FEU (0-0.50) H D-Dimer Comment Prothrombin Time 12.8 SECONDS (9.0-12.0) H INR International Normalized Ratio 1.3 INR Coagulation Comments Plan Plan Abdominal pain Acute alcoholic pancreatitis Alcohol use disorder Chlordiazepoxide started 25 mg q.6 H p.o. Patient is tachycardic but hemodynamically stable. Lipase increased from 162 to 276. Patient on clear liquid diet. Continue ringer lactate at 20 mL/hour. Continue Ativan and Haldol as per severe alcohol withdrawal protocol. Continue morphine p.r.n. for pain management Continue tele monitoring Substance abuse navigator consult Hypokalemia- k-3.5 Ordered 40meq of potassium oral Possible COPD in acute exacerbation Bilateral wheezing heard Started on Solu-Medrol 125 mg Albuterol/ipratropium 3 mL q.4h neb Ceftriaxone 1 g IV daily Azithromycin 500 mg Q 24 H IV Bifascicular block Incidental finding on EKG No prior cardiac history Continue tele monitoring Nonsustained supraventricular tachycardia Sinus tachycardia Secondary to alcohol withdrawal. Monitor electrolytes and keep potassium above four and magnesium above two. Continue Ativan and Haldol as per severe alcohol withdrawal protocol. Code Status: Full code DVT prophylaxis: Lovenox Analgesia/sedation: Morphine GI prophylaxis: Protonix Nutrition: Full liquids Prognosis: Guarded Disposition: Continue management in PCU. Continue telemetry monitoring. Continue Ativan 2mg Q15M if required. Started on chlordiazepoxide 25 mg q.6 H p.o. Anticipate discharge tomorrow. Priyank Weiss MD Internal Medicine Resident, PGY-1 Date of Service: Jun 24, 2025 Billing Provider: MATTIE ARREDONDO MD, PREETHI, RES Jun 24, 2025 14:23 DONNELL SMALLWOOD, RES Jun 25, 2025 07:28
[2025-06-24] MEDS: potassium Cl 20 mEq SR tablet PO STA (14:58)
[2025-06-24] MEDS: azithromycin/NS 500mg/250ml 250 ML IV SCH (14:58)
[2025-06-24] MEDS: guaiFENesin 200 MG/10 ML oral syrup UD cup PO PRN (14:58)
[2025-06-24] MEDS: ipratropium/albuterol 3ml nebule NEB SCH (16:40)
[2025-06-25] VITALS (11 sets, daily range): BP systolic 133–162; BP diastolic 77–97; PULSE 91–99; RESP 16–34; TEMP 97.4–99.4; O2SAT 96–100
[2025-06-25 06:57] LABS: MEAN PLATELET VOLUME 9.1 FL (7.4-10.4); RED CELL DISTRIBUTION WIDTH 13.8 % (11.5-14.5)
[2025-06-25 07:10] LABS: CREATININE 0.42 MG/DL (0.40-0.90); TOTAL CARBON DIOXIDE 21.9 MMOL/L (24-32); eCRCL 128 ML/MIN; eGFR > 90 ML/MIN
[2025-06-25] MEDS: lactose-reduced food (Ensure Enlive) - 237ml bottle PO SCH (12:57)
--- NOTE | 2025-06-25 19:28 | PROGRESS NOTE- Residence ---
Progress Note - Resident Providers to CC Resident Creating Document: KARYNA SMALLWOOD, RES ~ Antibiotic Timeout Antibiotic Ordered?: Yes Subjective The patient was seen and examined at bedside today. She is hallucinating but her abdominal pain got better. Her wheezing has also improved. Objective Vital Signs Date Time Temp Pulse Resp B/P (MAP) Pulse Ox O2 Delivery O2 Flow Rate FiO2 06/25/25 15:00 97.5 91 21 159/78 (105) 100 Room Air 06/25/25 07:45 0.0 06/25/25 07:37 21 Result Diagram: 06/25/2562806/25/25628 Adult female, alert and confused, not in acute distress Head: Normocephalic with an atraumatic Eyes: Pupils- 3mm, reacting to light, conjunctiva- anicteric Nose and throat: No polyps, septum- normal, no mucosal ulcers Neck: Supple, no lymphadenopathy, no carotid bruit Respiratory: No use of accessory muscles of respiration, Bilateral normal vesicular breath sounds heard. No wheeze, rhochi or creps Cardiac: S1-S2 heard, rhythm regular, no gallop/murmur Abdomen: non distended, epigastric tenderness present, no organomegaly, bowel sounds - heard Extremities: no clubbing, no pedal edema, no deformities, peripheral pulses - 2+ Skin: warm and dry, no rash, no purpura Neuro: No focal deficit, gross cranial nerve exam - normal Coagulation Studies Laboratory Tests Test 06/20/25 19:23 06/21/25 06:15 D-Dimer 1.10 MG/L FEU (0-0.50) H D-Dimer Comment Prothrombin Time 12.8 SECONDS (9.0-12.0) H INR International Normalized Ratio 1.3 INR Coagulation Comments Plan Plan Abdominal pain Acute alcoholic pancreatitis Alcohol use disorder Alcohol withdrawal with delirium tremens MRI head ordered. Follow up with the results. Chlordiazepoxide started 25 mg q.6 H p.o. Patient is tachycardic but hemodynamically stable. Lipase downtrending. Patient started on full liquid diet with ensures. Continue ringer lactate at 20 mL/hour. Continue Ativan and Haldol as per severe alcohol withdrawal protocol. Continue morphine p.r.n. for pain management Continue tele monitoring Substance abuse navigator consult Hyperthyroidism TSH low and free T4 greater than 2 times upper normal limit. Ultrasound thyroid ordered. Follow up with free T3. Methimazole 5 mg TID. Atenolol 50 mg daily for symptom control. Diarrhea Non watery, nonbloody. Could be from the sympathetic state secondary to alcohol withdrawal or hyperthyroidism. She also has antibiotics on board. Continue loperamide 2 mg q.6 H p.r.n. and culturelle. Hypokalemia, resolved Continue replacement as per protocol Possible COPD in acute exacerbation, improving Continue Solu-Medrol 60 mg b.i.d. Albuterol/ipratropium 3 mL q.4h neb Ceftriaxone 1 g IV daily Azithromycin 500 mg Q 24 H IV Bifascicular block Incidental finding on EKG No prior cardiac history Continue tele monitoring Nonsustained supraventricular tachycardia Sinus tachycardia Secondary to alcohol withdrawal. Monitor electrolytes and keep potassium above four and magnesium above two. Continue Ativan and Haldol as per severe alcohol withdrawal protocol. Code Status: Full code DVT prophylaxis: Lovenox Analgesia/sedation: Morphine GI prophylaxis: Protonix Nutrition: Full liquids Prognosis: Guarded Disposition: Continue management in PCU. Follow up with MRI head. Ativan and Haldol as per protocol. Karyna Smallwood MD Internal Medicine Resident, PGY-2 Date of Service: Jun 25, 2025 Billing Provider: MATTIE ARREDONDO MD,KARYNA FLORES, RES Jun 25, 2025 19:28
[2025-06-25] MEDS ORDERED: diazepam inj 5 MG/ML inj. IV PRN (19:30)
[2025-06-25] MEDS: diazepam inj 5 MG/ML inj. IV PRN (19:37)
[2025-06-25] MEDS: lactobacillus rhamnosus 10,000 MMU CELLS/CAPSULE PO SCH (20:00)
[2025-06-25] MEDS: loperamide 2mg capsule PO PRN (20:40)
[2025-06-25] MEDS: hydrALAZINE 20mg/ml inj. IV ONE (20:42)
[2025-06-26 05:00] VITALS: BP 156/88; PULSE 93; RESP 16; TEMP 98.3; O2SAT 96
[2025-06-26 06:24] LABS: MEAN PLATELET VOLUME 10.5 FL (7.4-10.4); RED CELL DISTRIBUTION WIDTH 13.8 % (11.5-14.5)
[2025-06-26 06:56] LABS: CREATININE 0.21 MG/DL (0.40-0.90); TOTAL CARBON DIOXIDE 21.6 MMOL/L (24-32); eCRCL 256 ML/MIN; eGFR > 90 ML/MIN
[2025-06-26 08:14] LABS: PLATELET ESTIMATE NORMAL
[2025-06-26] MEDS ORDERED: magnesium sulf-water 2g/50mL 50 ML IV PRN (08:40)
[2025-06-26] MEDS ORDERED: magnesium sulf-water 4G/100mL 100 ML IV PRN (08:40)
[2025-06-26] MEDS ORDERED: potassium Cl 20 mEq SR tablet PO PRN (08:40)
[2025-06-26] MEDS ORDERED: potassium Cl 40MEQ/1/2NS 520ml 520 ML IV PRN (08:40)
[2025-06-26 10:00] VITALS: BP 126/72; PULSE 77; RESP 16; TEMP 98.1; O2SAT 98
--- NOTE | 2025-06-26 10:34 | RADIOLOGY REPORT ---
PROCEDURE: MRI OF THE BRAIN WITHOUT CONTRAST. CLINICAL INDICATION: confusion TECHNIQUE: Multiplanar, multi sequence MRI of the brain was performed without intravenous contrast. COMPARISON: CT HEAD on DOS: 07/16/20 FINDINGS: There are a few, (2 or 3) T2/FLAIR hyperintense lesions in the right frontal lobe and left parietal l obe white matter. The signal characteristics of the brain parenchyma is otherwise within normal limit s. There are no areas of restricted diffusion to suggest acute infarct. No evidence of space occupyin g mass lesion, extra-axial collections or hemorrhage is noted. The ventricles, sulci and basal cister ns are intact. There is no signal abnormality in the posterior fossa. The paranasal sinuses and mastoid air cells are well pneumatized. The orbits and nasopharynx are inta ct. The osseous structures are intact. The vessels of the skull base demonstrate signal void consistent with patency. IMPRESSION: 1. No acute intracranial abnormality. 2. Few T2/FLAIR white matter hyperintensities in the frontal and parietal lobe which are nonspecific in etiology. Findings can be seen in but not limited to the setting of chronic migraine headaches, d emyelinating disease, sequelae of microvascular ischemic changes.
--- NOTE | 2025-06-26 10:45 | RADIOLOGY REPORT ---
ULTRASOUND SOFT TISSUE HEAD AND NECK CLINICAL INDICATION: hyperthyroidism TECHNIQUE: Multiple real time sonographic images of the thyroid were obtained. COMPARISON: Prior exam dated None FINDINGS: The right thyroid gland measures 4.2 x 1.9 x 2.3 cm. The left thyroid gland measures approximately 4.0 x 2.0 x 2.2 cm. The isthmus measures 0.3 cm. The thyroid is diffusely heterogeneous. There are multiple TI-RADS 2 and 3 nodules in the bilateral t hyroid gland measuring up to 1.4 cm in the left thyroid gland. IMPRESSION: Heterogeneous thyroid gland with multiple TI-RADS 2 and TI-RADS 3 nodules in the bilateral thyroid gl and measuring up to 1.4 cm in the left thyroid gland. [employer] TI-RADS Categories and Recommendations (2017): TR1: 0 points, Benign, No FNA TR2: 2 points, Not suspicious, No FNA TR3: 3 points, Mildly suspicious, FNA if > or = 2.5 cm, Follow if > or = 1.5 cm TR4: 4-6 points, Moderately Suspicious, FNA if > or = 1.5 cm, Follow if > or = 1.0 cm TR5: 7+ points, Highly Suspicious, FNA if > or = 1.0 cm, Follow if > or = 0.5 cm Follow-up ultrasound guidelines: TR5: yearly for 5 years, if no growth or change in TI-RADS level TR4: at 1, 2, 3 and 5 years, if no growth or change in TI-RADS level TR3: at 1, 3 and 5 years, if no growth or change in TI-RADS level If increased but below threshold for FNA, repeat in one year. Source: ACR Thyroid Imaging, Reporting and Data System (TI-RADS): White Paper of the ACR TI-RADS Committee. Fortunato et al., J Am Chandrakant Radiol 2017;14:587-595.
[2025-06-26 11:54] VITALS: PULSE 76; RESP 16; O2SAT 96
[2025-06-26] MEDS: multivitamins, therapeutics tablet PO SCH (17:42)
[2025-06-26 18:00] VITALS: BP 125/76; PULSE 89; RESP 14; TEMP 96.9; O2SAT 99
[2025-06-26] MEDS: lactose-reduced food (Ensure Enlive) - 237ml bottle PO SCH (18:00)
--- NOTE | 2025-06-26 19:26 | PROGRESS NOTE- Residence ---
Progress Note - Resident Providers to CC Resident Creating Document: KARYNA SMALLWOOD, RES ~ Antibiotic Timeout Antibiotic Ordered?: Yes Subjective The patient was seen and examined at bedside today. She is more awake and alert today. Conversing well. Not hallucinating anymore. She is motivated to quit alcohol. Objective Vital Signs Date Time Temp Pulse Resp B/P (MAP) Pulse Ox O2 Delivery O2 Flow Rate FiO2 06/26/25 18:30 96 06/26/25 11:54 16 96 Room Air* 0 21 06/26/25 10:00 98.1 126/72 (90) Result Diagram: 06/26/25 0546 06/26/25 0546 Adult female, alert, not in acute distress Head: Normocephalic with an atraumatic Eyes: Pupils- 3mm, reacting to light, conjunctiva- anicteric Nose and throat: No polyps, septum- normal, no mucosal ulcers Neck: Supple, no lymphadenopathy, no carotid bruit Respiratory: No use of accessory muscles of respiration, Bilateral normal vesicular breath sounds heard. No wheeze, rhochi or creps Cardiac: S1-S2 heard, rhythm regular, no gallop/murmur Abdomen: non distended, mild epigastric tenderness present, no organomegaly, bowel sounds - heard Extremities: no clubbing, no pedal edema, no deformities, peripheral pulses - 2+ Skin: warm and dry, no rash, no purpura Neuro: No focal deficit, gross cranial nerve exam - normal Coagulation Studies Laboratory Tests Test 06/20/25 19:23 06/21/25 06:15 D-Dimer 1.10 MG/L FEU (0-0.50) H D-Dimer Comment Prothrombin Time 12.8 SECONDS (9.0-12.0) H INR International Normalized Ratio 1.3 INR Coagulation Comments Plan Plan Abdominal pain Acute alcoholic pancreatitis Alcohol use disorder Alcohol withdrawal with delirium tremens MRI head showed no acute abnormality. Chlordiazepoxide started 25 mg q.6 H p.o. Tachycardia improved with carvedilol. Lipase downtrending. Patient started on regular diet with ensures. Continue ringer lactate at 20 mL/hour. Continue Ativan and Haldol as per severe alcohol withdrawal protocol. Continue morphine p.r.n. for pain management Continue tele monitoring Substance abuse navigator consult Hyperthyroidism TSH low and free T4 greater than 2 times upper normal limit. Ultrasound thyroid ordered. Follow up with free T3. Methimazole 5 mg TID. Carvedilol 3.125 b.i.d. mg daily for symptom control. Diarrhea Non watery, nonbloody. Could be from the sympathetic state secondary to alcohol withdrawal or hyperthyroidism. She also has antibiotics on board. Continue loperamide 2 mg q.6 H p.r.n. and culturelle. Hypokalemia, resolved Continue replacement as per protocol Possible COPD in acute exacerbation, improving Continue Solu-Medrol 60 mg b.i.d. Albuterol/ipratropium 3 mL q.4h neb Ceftriaxone 1 g IV daily Azithromycin 500 mg Q 24 H IV Bifascicular block Incidental finding on EKG No prior cardiac history Continue tele monitoring Nonsustained supraventricular tachycardia Sinus tachycardia Secondary to alcohol withdrawal. Monitor electrolytes and keep potassium above four and magnesium above two. Continue Ativan and Haldol as per severe alcohol withdrawal protocol. Code Status: Full code DVT prophylaxis: Lovenox Analgesia/sedation: Morphine GI prophylaxis: Protonix Nutrition: Full liquids PT: Unable to determine Disposition: Continue management in PCU. Ativan and Haldol as per protocol. Anticipate discharge in the next 24-48 hours. Karyna Smallwood MD Internal Medicine Resident, PGY-2 Date of Service: Jun 26, 2025 Billing Provider: MATTIE ARREDONDO MD,KARYNA FLORES, RES Jun 26, 2025 19:26
[2025-06-26 20:00] VITALS: RESP 16; O2SAT 99
[2025-06-26] MEDS: K and/or MAG REPLACEMENT MC SCH (20:00)
[2025-06-26 22:00] VITALS: BP 153/84; PULSE 84; RESP 16; TEMP 97.6; O2SAT 99
[2025-06-27 05:00] VITALS: BP 174/92; PULSE 77; RESP 16; TEMP 98; O2SAT 96
[2025-06-27 08:02] VITALS: PULSE 84; RESP 16; O2SAT 96
[2025-06-27] MEDS: potassium Cl 20 mEq SR tablet PO PRN (08:20)
[2025-06-27] MEDS: magnesium Cl slow-release 64mg tablet PO PRN (08:21)
[2025-06-27 10:00] VITALS: BP 116/73; PULSE 89; RESP 16; TEMP 97.1; O2SAT 99
[2025-06-27] MEDS ORDERED: NALT50TA5 PO (12:24)
[2025-06-27] MEDS ORDERED: CHLO25CA10 PO (12:24)
[2025-06-27] MEDS ORDERED: METH-1026 PO (12:59)
[2025-06-27] MEDS ORDERED: MULT-25 PO (12:59)
[2025-06-27] MEDS ORDERED: COR3.125T PO (12:59)
[2025-06-27] MEDS ORDERED: CEFD300C3 PO (12:59)
[2025-06-27] MEDS ORDERED: FOLI1TAB27 PO (12:59)
[2025-06-27] MEDS ORDERED: PRED10TA PO (12:59)
[2025-06-27] MEDS ORDERED: PANT-47 PO (12:59)
[2025-06-27] MEDS ORDERED: LACT1CAP26 PO (12:59)
[2025-06-27] MEDS ORDERED: thiamine tablet PO (12:59)
[2025-06-27] MEDS ORDERED: GUAI100L97 PO (12:59)
[2025-06-27] MEDS ORDERED: ALBU2.5V7 NEB (12:59)
--- NOTE | 2025-06-27 19:36 | DISCHARGE SUMMARY-Residence ---
Discharge Summary Providers to Resident Creating Document: GUILLE BUSTOS RES ~ Discharge Summary Admission Diagnosis: ACUTE PANCREATITIS Hospital Course DATE OF ADMISSION: 06/20/25 DATE OF DISCHARGE:06/27/25 IMAGING- HEAD MRI- No acute intracranial abnormality. Few T2/FLAIR white matter hyperintensities in the frontal and parietal lobe which are nonspecific in etiology. Findings can be seen in but not limited to the setting of chronic migraine headaches, demyelinating disease, sequelae of microvascular ischemic changes. HEAD/NECK USG- Heterogeneous thyroid gland with multiple TI-RADS 2 and TI-RADS 3 nodules in the bilateral thyroid gland measuring up to 1.4 cm in the left thyroid gland. ABD/PELVIS CT- Small volume perihepatic abdominal ascites. Bibasilar subsegmental atelectasis and small bilateral pleural effusions. Cardiomegaly. Distended urinary bladder. CHEST X-RAY- No acute cardiopulmonary abnormality. Discharge Diagnosis\Comment: Abdominal pain secondary to acute alcoholic pancreatitis, alcohol withdrawal sadie DTs, hypothyroidism, diarrhea, hypokalemia, COPD and a acute exacerbation, bifascicular block, nonsustained supraventricular tachycardia Operations\Procedures: None Consultants: None Complications: None Condition on DC: Stable New Medications: Albuterol Sulfate (Albuterol Sulfate) 2.5 Mg/3 Ml Vial.neb 1 VIAL NEB Q4HPRN PRN for wheezing, #150 ML 0 Refills Cefdinir* (Cefdinir*) 300 Mg Capsule 1 CAP PO Q12H for 3 Days, #7 CAP Naltrexone Hcl (Naltrexone Hcl) 50 Mg Tablet 1 TAB PO DAILY for 30 Days, #30 TAB 0 Refills Pantoprazole Sodium (PROTONIX tablet) 40 Mg Tablet.dr 40 MG PO DAILY, #30 TAB.SR Prednisone (Prednisone) 10 Mg Tablet 0 PO DAILY, #42 TABLET Take 4 tabs daily x4 days, then 3 daily x4 days 2 daily x4 days 1 daily x4 days 1/2 daily x4 days then STOP Carvedilol (Carvedilol) 3.125 Mg Tablet 6.25 MG PO BID for 30 Days, #60 TAB Chlordiazepoxide HCl (Chlordiazepoxide HCl) 25 Mg Capsule 25 MG PO Q8H, #18 CAP Take 3 tablets daily x 3 days then 2 tablets daily x 3 days then 1 tablet daily. Folic Acid* (Folic Acid*) Y Tab 1 MG PO DAILY for 30 Days, #30 TAB Guaifenesin (Guaifenesin) 100 Mg/5 Ml Liquid 100 MG PO BID PRN for cough & congestion for 7 Days, #100 ML Lactobacillus Rhamnosus (Culturelle) 10 Billion Cell Capsule 70425 MMU PO BID for 30 Days, #60 CAP Methimazole (methimazole tablet) 5 Mg Tablet 5 MG PO TID for 30 Days, #60 TAB Multivitamin with Folic Acid (Thera Tablet) 400 Mcg Tablet 1 EACH PO DAILY for 30 Days, #30 TAB [thiamine tablet] () 100 MG TABLET 100 MG PO DAILY for 30 Days, #30 Discharge Summary: Patient is a 40-year-old female with history of alcohol use disorder who came to the ED due to severe abdominal pain. Patient reports that this morning she presented with sudden onset abdominal pain which started on left flank/back and then migrated to her epigastrium, 10/10 in intensity, worsened by walking, attenuated by morphine which she received in ED. Pain was accompanied by accompanied by nausea, vomiting, lack of appetite, bloating and chills. She denies fevers, diarrhea, hematemesis or melena. Pain is currently at 9/10. Patient reports that she normally drinks about 3 alcoholic lemonade beverage every night (8% alcohol), however, she reports that this past week due to some relatives being in town she has been drinking much more including hard liquor. Her last drink was Sunday night COURSE IN THE HOSPITAL . During her initial first few days in the hospital she was hemodynamically very unstable, tachycardic, with increased blood pressures. She was showing signs and symptoms of withdrawal. So she was put on alcohol withdrawal protocol. Was given aggressive treatment with benzodiazepine for her withdrawal. She was also on a lot of fluids-NS. Was treated with folic acid, thiamine to prevent from developing Wernicke's Korsakoff's syndrome. Initially she was NPO but as she got better, we started her on clear liquid diet. Her co ndition improved significantly over the course of her hospital stay and was advised to abstain completely from alcohol. Physical therapy evaluation and treatment was done. Patient is stable at the time of discharge. A lengthy discussion on how to stay sober was discussed with the patient on the day of discharge the patient was given a tapering dose of Librium and also naltrexone for alcohol withdrawal cravings The patient is discovered to be hyperthyroid with a TSH that was less than 0.01 and a free T4 3.27 with a total T3 of 193 that was and was started on methimazole and recommended to recheck thyroid function 12 weeks Examination at discharge: General: awake, alert. oriented to place, time, oriented to person HEENT: No pallor present, no icterus Neck: No masses and tenderness Resp: Unlabored. Lungs clear to auscultation bilaterally. Chest: Normal expansion Cardiovascular: normal S1 and S2 without murmur, rub or gallop Abdomen: Soft, no bloating, no organomegaly, no guarding and rigidity, bowel sounds present Neuro: No focal weakness in the upper and lower limb muscles, normal reflexes bilaterally. Cranial nerves intact Extremities: No cyanosis,clubbing or edema Skin: Warm and Dry. No lesions Psych: Normal affect Laboratory Tests Test 06/25/25 21:27 06/25/25 22:28 06/26/25 02:51 06/26/25 05:46 Glucometer 146 mg/dl 151 mg/dl 142 mg/dl White Blood Count 6.6 X10'3 Red Blood Count 3.70 X10'6 Hemoglobin 8.9 g/dl Hematocrit 27.9 % Mean Corpuscular Volume 75.2 FL Mean Corpuscular Hemoglobin 24.1 PG Mean Corpuscular Hemoglobin Concent 32.0 g/dL Red Cell Distribution Width 13.8 % Platelet Count 200 X10'3 Mean Platelet Volume 10.5 FL Neutrophils (%) (Auto) 90.2 % Lymphocytes (%) (Auto) 6.5 % Monocytes (%) (Auto) 3.1 % Eosinophils (%) (Auto) 0.1 % Basophils (%) (Auto) 0.1 % Neutrophils # (Auto) 6.0 X10'3 Lymphocytes # (Auto) 0.4 X10'3 Monocytes # (Auto) 0.2 X10'3 Eosinophils # (Auto) 0.0 X10'3 Basophils # (Auto) 0.0 X10'3 CBC Comment Platelet Estimate Normal Red Blood Cell Morphology Perf Polychromasia Few Basophilic Stippling Microcytosis 1+ Target Cells Few Mary Cells Few Sodium Level 142 MMOL/L Potassium Level 4.2 MMOL/L Chloride Level 111 MMOL/L Carbon Dioxide Level 21.6 MMOL/L Anion Gap 9 Blood Urea Nitrogen 9 MG/DL Creatinine 0.21 MG/DL Estimated GFR/1.73 m2 > 90 ML/MIN BUN/Creatinine Ratio 42.9 Glucose Level 133 MG/DL Calcium Level 8.4 MG/DL Total Bilirubin 0.7 MG/DL Aspartate Amino Transf (AST/SGOT) 34 U/L Alanine Aminotransferase (ALT/SGPT) 11 U/L Alkaline Phosphatase 76 IU/L Total Protein 6.1 G/DL Albumin 2.0 G/DL Globulin 4.1 G/DL Albumin/Globulin Ratio 0.5 Lipase 122 U/L Chemistry Comments Test 06/26/25 08:35 06/26/25 14:40 06/26/25 19:59 06/27/25 02:36 Glucometer 123 mg/dl 228 mg/dl 245 mg/dl 200 mg/dl Test 06/27/25 06:13 06/27/25 08:30 Potassium Level 3.3 MMOL/L Magnesium Level 1.9 MG/DL Glucometer 167 mg/dl LABS- Vital Signs Date Time Temp Pulse Resp B/P (MAP) Pulse Ox O2 Delivery O2 Flow Rate FiO2 06/27/25 10:00 97.1 89 16 116/73 (87) 99 Room Air 06/27/25 08:[address] ORDERS FOR THE PATIENT- Follow up with PCP in 1-2 weeks Strict abstinence from alcohol CMP, CBC to be followed up in one week In case of abdominal pain, or any other emergency please contact 911 or go to the ED immediately. The patient felt ready to be discharged and was medically cleared to be discharged on 06/27/2025 The patient was seen and evaluated on day of discharge. Time spent on discharge 40 minutes *Problems/Diagnosis: (1) Acute pancreatitis Status: Acute (2) Alcohol withdrawal Status: Acute (3) Alcohol use disorder Total Time Spent on D/C: > 30 Minutes Date of Service: Jun 27, 2025 Billing Provider: ORLIN PASTRANA DO Common Visit Codes: 53272-RBM/OBS DISCH DAY >30min Problem Qualifiers (1) Acute pancreatitis: Pancreatitis type: alcohol induced Acute pancreatitis complication: unspecified Qualified Codes: K85.20 - Alcohol induced acute pancreatitis without necrosis or infection (2) Alcohol withdrawal: Complication of substance-induced condition: with unspecified complication Qualified Codes: F10.939 - Alcohol use, unspecified with withdrawal, unspecified REDDIVARI,GUILLE, RES Jun 27, 2025 18:51 ORLIN PASTRANA DO Jun 27, 2025 19:53
== END 2025-06-27 15:35 | disposition home or self-care (01) | DRG 282 ==
LOC: ER 16:15 → ED HOLD 22:35 → EDBEDREQ 23:26 → PCU 3S 06-21 → ORTHO 4S 06-25 21:33
PROVIDERS: ADMIT Surgery Surgical Critical Care; ATTEND Family Medicine
PROC: BW211ZZ Computerized Tomography (CT Scan) of Abdomen and Pelvis using Low Osmolar Contrast (ICD-10-PCS; principal; 2025-06-21)
DX: K85.20 Alcohol induced acute pancreatitis without necrosis or infection (principal); F10.931 Alcohol use, unspecified with withdrawal delirium; I47.10 Supraventricular tachycardia, unspecified; J44.1 Chronic obstructive pulmonary disease with (acute) exacerbation; I45.2 Bifascicular block; E87.6 Hypokalemia; E05.90 Thyrotoxicosis, unspecified without thyrotoxic crisis or storm; E03.9 Hypothyroidism, unspecified
CPT/HCPCS: 36415; 70551; 71045; 74176; 76536; 80053; 80305; 80320; 81001; 81025; 82140; 82150; 82948; 83605; 83690; 83735; 84100; 84132; 84145; 84439; 84443; 84480; 84484; 85008; 85025; 85379; 85610; 87040; 87081; 93005; 94640; 94760; 96365; 96375; 96376; 97116; 97161; 97530; 99285; C1758; G0378; J0131; J0360; J0456; J0696; J1630; J1650; J2060; J2270; J2405; J2470; J2919; J3360; J3411; J3480; J3490; J7030; J7040; J7120